=== PATIENT | male | born 1990 | race Caucasian/White ===

== ENCOUNTER → 2019-01-09 | Outpatient (CLI) | payer OTHER ==
--- NOTE | 2019-01-10 07:33 | CT ---
EXAM: Sinuses CLINICAL HISTORY: CHRONIC SINUSITIS COMPARISON STUDY: None TECHNICAL: Thin section non-contrast axial CT images were obtained through the paranasal sinuses. Sagittal and coronal reconstructions were acquired. FINDINGS: The paranasal sinuses are normally formed and aerated. There are no opacified sinuses. There is no air fluid level identified within any of the paranasal sinuses. There is inferior mucosal thickening in both maxillary sinuses. Scattered bilateral ethmoid air cells have mucosal thickening. The ostiomeatal units are patent. The nasal septum is deviated to the left superiorly and to the right inferiorly. There is no fracture or acute osseous abnormality. The temporomandibular joints are in alignment. IMPRESSION: 1. Mild bilateral maxillary sinus and ethmoid air cell mucosal thickening. 2. Nasal septal deviation. Automated exposure control, Adjustment of mA and/or kV according to patient size, or iterative reconstruction techniques were used. Electronically signed by: Shawn Tiwari MD 01/10/2019 7:31 AM CDT
== END ==
LOC: CT 08:50
PROVIDERS: ATTEND Nurse Practitioner Family
DX: J32.9 Chronic sinusitis, unspecified (principal); H66.92 Otitis media, unspecified, left ear; J34.2 Deviated nasal septum